=== PATIENT | female | born 1945 | race Caucasian/White ===

== ENCOUNTER 2016-06-24 09:45 | Day surgery (SDC) | payer MEDICARE, BC ==
[2016-06-24] MEDS ORDERED: Sodium Chloride 0.9% 1,000 ML IV SCH (10:15)
[2016-06-24] MEDS ORDERED: fentaNYL 100 MCG/2 ML SDV ONE (11:03)
[2016-06-24] MEDS ORDERED: Propofol 200 MG/20 ML SDV ONE (11:03)
[2016-06-24] MEDS ORDERED: Midazolam 1 MG/ML 2 ML SDV ONE (11:03)
[2016-06-24 12:38] VITALS: BP 118/68
--- NOTE | 2016-06-24 19:57 | OR ---
DATE OF PROCEDURE: 06/24/2016 PROCEDURE: Colonoscopy. FINDINGS: 1. Diverticulosis, extensively dense in the sigmoid colon with sporadic diverticulosis through the remainder of the colon. 2. Approximately 1 cm polyp, completely removed using hot snare from the sigmoid colon. COMPLICATIONS: None. STARCH AND PROSIZE MIXER: None. ANESTHESIA: MAC. PREOPERATIVE DIAGNOSIS: History of colon polyps. POSTOPERATIVE DIAGNOSIS: History of colon polyps. INDICATIONS: Risks, benefits, alternatives, limitations including, but not limited to infection, bleeding, and perforation were explained to the patient and she wished to proceed. PROCEDURE IN DETAIL: The patient was placed in the left lateral decubitus position. Digital rectal exam was performed without abnormality. The scope was advanced atraumatically to the ileocecal valve. The scope was brought back to the ascending, transverse, descending colon, and retroflexed. The aforementioned polyp was identified and completely removed as described above. Diverticulosis described as significant and noted mostly in the sigmoid colon. No other abnormalities noted on retroflexion. The patient tolerated the procedure well. Mathew Beatty MD /[id number]
== END 2016-06-24 12:55 | disposition home or self-care (01) ==
LOC: JP.SDS 09:45
PROVIDERS: ATTEND Surgery
DX: K63.5 Polyp of colon (principal); K57.30 Diverticulosis of large intestine without perforation or abscess without bleeding; K21.9 Gastro-esophageal reflux disease without esophagitis; F32.9 Major depressive disorder, single episode, unspecified; I12.9 Hypertensive chronic kidney disease with stage 1 through stage 4 chronic kidney disease, or unspecified chronic kidney disease; N18.9 Chronic kidney disease, unspecified; E11.22 Type 2 diabetes mellitus with diabetic chronic kidney disease; Z86.010 Personal history of colon polyps
CPT/HCPCS: 45385; 88305; J2250; J2704; J3010; J7040

== ENCOUNTER 2018-07-10 14:40 | Emergency (ER) | payer MEDICARE, BC ==
[2018-07-10 14:47] VITALS: BP 119/63
--- NOTE | 2018-07-10 15:05 | EDM.PDOC ---
ED HPI GENERAL MEDICAL PROBLEM - General Chief Complaint: Upper Extremity Injury/Pain Stated Complaint: VIA NORTH/ FELL Time Seen by Provider: 07/10/18 14:50 Source of Information: Reports: Patient, EMS History Limitations: Reports: No Limitations - History of Present Illness INITIAL COMMENTS - FREE TEXT/NARRATIVE: 72-year-old female stumbled out of 5 deck landing on her right side striking her left arm hard on the ground. She has pain and deformity of the upper left arm near the shoulder, and ambulance needed to be called. She was given IV pain medication in route. No loss of consciousness, denies neck pain, shortness of breath, her main concern is her left arm and shoulder. Onset: Sudden Duration: Hour(s): (Within the last hour) Location: Reports: Upper Extremity, Left Associated Symptoms: Reports: No Other Symptoms shoulder Pain Score (Numeric/FACES): 6 - Related Data Allergies Allergy/AdvReac Type Severity Reaction Status Date / Time No Known Allergies Allergy Verified 06/24/16 10:10 Home Meds: Home Meds Acetaminophen [Tylenol Extra Strength] 1,000 mg PO BID PRN 06/22/16 [History] Aspirin [Halfprin] 81 mg PO DAILY 06/22/16 [History] Atenolol [Tenormin] 50 mg PO DAILY 06/22/16 [History] Cholecalciferol (Vitamin D3) [Vitamin D3] 2,000 unit PO DAILY 06/22/16 [History] Fish Oil/[place]-3 Fatty Acids [Fish Oil] 1 each PO BID 06/22/16 [History] Flaxseed/Omega3,6,9/Fatty Acid [Flax Seed Oil 1,300 mg Softgel] 1 each PO DAILY 06/22/16 [History] Lisinopril 10 mg PO DAILY 06/22/16 [History] Multivitamin [Multivitamins] 1 each PO DAILY 06/22/16 [History] Pantoprazole Sodium [Protonix] 40 mg PO DAILY 06/22/16 [History] Potassium Chloride [Klor-Con M20] 20 meq PO DAILY 06/22/16 [History] Pravastatin Sodium [Pravachol] 20 mg PO DAILY 06/22/16 [History] Sertraline [Zoloft] 150 mg PO DAILY 06/22/16 [History] Wheat Dextrin [Benefiber] 1 each PO DAILY 06/22/16 [History] hydroCHLOROthiazide [Hydrochlorothiazide] 25 mg PO DAILY 06/22/16 [History] Past Medical History Cardiovascular History: Reports: High Cholesterol, Hypertension Respiratory History: Reports: Bronchitis, Recurrent Gastrointestinal History: Reports: Colon Polyp, GERD, Other (See Below) Other Gastrointestinal History: sl elevated liver enzymes Genitourinary History: Reports: Other (See Below) Other Genitourinary History: decreased kidney function 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: Musculoskeletal History: Reports: Arthritis Psychiatric History: Reports: Anxiety, Depression Endocrine/Metabolic History: Reports: Diabetes, Type II, Obesity/BMI 30+ Dermatologic History: Reports: Eczema - Past Surgical History Female Surgical History: Reports: Breast Biopsy Musculoskeletal Surgical History: Reports: Knee Replacement, Shoulder Surgery, Other (See Below) Social & Family History - Tobacco Use Smoking Status *Q: Never Smoker - Caffeine Use Caffeine Use: Reports: Coffee Review of Systems - Review of Systems Review Of Systems: See Below Constitutional: Denies: Fever Respiratory: Denies: Shortness of Breath Cardiovascular: Denies: Chest Pain GI/Abdominal: Reports: Nausea. Denies: Abdominal Pain, Vomiting Skin: Denies: Bruising Neurological: Denies: Paresthesia (No paresthesia of the arms) ED EXAM, GENERAL - Physical Exam Exam: See Below Exam Limited By: No Limitations General Appearance: Alert, Mild Distress Eye Exam: Bilateral Eye: Normal Inspection Head: Atraumatic Neck: Non-Tender Respiratory/Chest: Lungs Clear Extremities: Other (Extremely tender to palpation with anterior swelling and slight bruising starting over the anterior left shoulder. Very painful with any passive range of motion.) Course - Vital Signs Last Recorded V/S: Last Vital Signs Temp 97.2 F 07/10/18 14:46 Pulse 66 07/10/18 14:46 Resp 18 07/10/18 14:46 BP 119/63 07/10/18 14:46 Pulse Ox 96 07/10/18 14:46 - Orders/Labs/Meds Meds: Medications Discontinued Medications Generic Name Dose Route Start Last Admin Trade Name Freq PRN Reason Stop Dose Admin Propofol 100 mg 07/10/18 15:12 07/10/18 15:43 Diprivan 20 Ml IVPUSH 07/10/18 15:13 100 mg ONETIME ONE Administration - Re-Assessments/Exams Free Text/Narrative Re-Assessment/Exam: 07/10/18 15:05 A left shoulder x-ray was obtained. 07/10/18 17:33 Technique was difficult due to patient pain but it appeared to be an anterior dislocation. Under propofol sedation the shoulder was reduced. Post reduction films initially were equivocal and it appeared the shoulder may have re- dislocated so a second attempt at relocation was done. Further postreduction x- rays confirmed proper shoulder placement. Patient had less pain with movement. 30 minutes after reduction when the propofol wore off, the patient ate a full meal and was much more comfortable. She was placed in a left arm sling and will follow up with orthopedics later this week. Departure - Departure Time of Disposition: 17:52 Disposition: Home, Self-Care 01 Condition: Good Clinical Impression: Anterior dislocation of left shoulder Qualifiers: Encounter type: initial encounter Qualified Code(s): S43.015A - Anterior dislocation of left humerus, initial encounter - Discharge Information Instructions: Shoulder Dislocation, [id number] Referrals: PCP,None [Ordering Only Provider] - Forms: ED Department Discharge Care Plan Goals: Keep arm in sling for the majority of the time, if the arm comes out of the sling do not raise the arm above her head or recheck backwards. Call the orthopedic clinic as discussed for an appointment this week. Ibuprofen or naproxen will help with pain.
[2018-07-10] MEDS ORDERED: Propofol 200 MG/20 ML SDV IVPUSH ONE (15:12)
--- NOTE | 2018-07-10 15:38 | CRLCR ---
HISTORY: Pain after falling injury. FINDINGS: Single AP view of the left upper arm is provided. No findings for fracture or dislocation. Moderate degenerative change of the acromioclavicular joint is noted. Dictated by Matthew Rosario MD @ Jul 10 2018 3:36PM Signed by Dr. Matthew Rosario @ Jul 10 2018 3:37PM
--- NOTE | 2018-07-10 17:07 | CRLCR ---
HISTORY: Shoulder pain. History of dislocation. FINDINGS The shoulder now appears normally located. Mild degenerative change of the acromioclavicular joint is noted. No findings for fracture. Dictated by Matthew Rosario MD @ Jul 10 2018 5:03PM Signed by Dr. Matthew Rosario @ Jul 10 2018 5:05PM
--- NOTE | 2018-07-10 23:28 | CRLCR ---
INDICATION: Shoulder dislocation post reduction TECHNIQUE: Shoulder radiograph 3 views left COMPARISON: 07/10/2018 FINDINGS: Bone: No acute fractures or aggressive bone lesions are identified. There is persistent inferior dislocation of the humeral head noted without significant change. Moderate diffuse osteopenia is noted. Joint: The glenohumeral is unremarkable. The acromioclavicular joint is unremarkable. Soft tissue: Unremarkable. The visualized hemithorax is unremarkable in appearance. No radiopaque foreign bodies are seen. IMPRESSION: 1. There is persistent inferior dislocation of the humeral head noted without significant change. Follow-up evaluation with [facility] view recommended. A copy of this report was faxed to Dr. Toscano at approximately 11:26 PM. Dictated by Bobby Willingham MD @ 07/10/2018 11:26:49 PM Dictated by: Bobby Willingham MD @ 07/10/2018 23:26:57 (Electronically Signed)
== END 2018-07-10 17:52 | disposition home or self-care (01) ==
LOC: JP.ED 14:40
DX: S43.015A Anterior dislocation of left humerus, initial encounter (principal); I10 Essential (primary) hypertension; E11.9 Type 2 diabetes mellitus without complications; E66.9 Obesity, unspecified; F41.9 Anxiety disorder, unspecified; F32.9 Major depressive disorder, single episode, unspecified; M19.90 Unspecified osteoarthritis, unspecified site; Z79.82 Long term (current) use of aspirin; Z79.899 Other long term (current) drug therapy; W01.198A Fall on same level from slipping, tripping and stumbling with subsequent striking against other object, initial encounter; Y92.009 Unspecified place in unspecified non-institutional (private) residence as the place of occurrence of the external cause
CPT/HCPCS: 23650; 23655; 73020; 73030; 99283; J2704

== ENCOUNTER 2018-10-11 13:25 | Emergency (ER) | payer MEDICARE, BC ==
[2018-10-11 13:31] VITALS: BP 116/67
[2018-10-11] MEDS: Acetaminophen/HYDROcodone 325-5 MG Tab PO ONE (14:27)
--- NOTE | 2018-10-11 14:28 | EDM.PDOC ---
ED HPI GENERAL MEDICAL PROBLEM - General Chief Complaint: Head Injury Stated Complaint: FALL VIA NORTH Time Seen by Provider: 10/11/18 14:10 Source of Information: Reports: Patient, Old Records History Limitations: Reports: No Limitations - History of Present Illness INITIAL COMMENTS - FREE TEXT/NARRATIVE: 72 yo female here via EMS after she tripped on the sidewalk and hit her R forehead and injured her R hip. She denies LOC, nausea or blurred vision. No new neck pain. Has not walked since her fall. She is on only ASA for blood thinners. Onset: Today Onset Date: 10/11/18 Onset Time: 13:40 Duration: Minutes:, Constant Location: Reports: Face, Lower Extremity, Right Quality: Reports: Ache Severity: Moderate Improves with: Reports: Rest Worsens with: Reports: Movement (of R leg worsens hip pain) Context: Reports: Trauma Associated Symptoms: Reports: No Other Symptoms. 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) Right Head Pain Score (Numeric/FACES): 3 - Related Data Allergies Allergy/AdvReac Type Severity Reaction Status Date / Time No Known Allergies Allergy Verified 10/11/18 13:30 Home Meds: Home Meds Acetaminophen [Tylenol Extra Strength] 1,000 mg PO BID PRN 06/22/16 [History] Aspirin [Halfprin] 81 mg PO DAILY 06/22/16 [History] Atenolol [Tenormin] 50 mg PO DAILY 06/22/16 [History] Fish Oil/[place]-3 Fatty Acids [Fish Oil] 1 each PO BID 06/22/16 [History] Flaxseed/Omega3,6,9/Fatty Acid [Flax Seed Oil 1,300 mg Softgel] 1 each PO DAILY 06/22/16 [History] Lisinopril 10 mg PO DAILY 06/22/16 [History] Multivitamin [Multivitamins] 1 each PO DAILY 06/22/16 [History] Pantoprazole Sodium [Protonix] 40 mg PO DAILY 06/22/16 [History] Potassium Chloride [Klor-Con M20] 20 meq PO DAILY 06/22/16 [History] Pravastatin Sodium [Pravachol] 20 mg PO DAILY 06/22/16 [History] Sertraline [Zoloft] 150 mg PO DAILY 06/22/16 [History] Wheat Dextrin [Benefiber] 1 each PO DAILY 06/22/16 [History] hydroCHLOROthiazide [Hydrochlorothiazide] 25 mg PO DAILY 06/22/16 [History] Past Medical History HEENT History: Reports: Impaired Vision Cardiovascular History: Reports: High Cholesterol, Hypertension Respiratory History: Reports: Bronchitis, Recurrent Gastrointestinal History: Reports: Colon Polyp, GERD, Other (See Below) Other Gastrointestinal History: sl elevated liver enzymes Genitourinary History: Reports: Other (See Below) Other Genitourinary History: decreased kidney function 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: Musculoskeletal History: Reports: Arthritis, Other (See Below) Other Musculoskeletal History: L shoulder dislocation 07/10/18 Neurological History: Reports: None Psychiatric History: Reports: Anxiety, Depression Endocrine/Metabolic History: Reports: Diabetes, Type II, Obesity/BMI 30+ Hematologic History: Reports: None Immunologic History: Reports: None Oncologic (Cancer) History: Reports: None Dermatologic History: Reports: Eczema - Past Surgical History Head Surgeries/Procedures: Reports: None HEENT Surgical History: Reports: None Cardiovascular Surgical History: Reports: None Respiratory Surgical History: Reports: None GI Surgical History: Reports: Colonoscopy Female Surgical History: Reports: Breast Biopsy Neurological Surgical History: Reports: None Musculoskeletal Surgical History: Reports: Knee Replacement, Shoulder Surgery, Other (See Below) Dermatological Surgical History: Reports: None Social & Family History - Tobacco Use Smoking Status *Q: Never Smoker Second Hand Smoke Exposure: No - Caffeine Use Caffeine Use: Reports: Coffee, Tea - Recreational Drug Use Recreational Drug Use: No ED ROS GENERAL - Review of Systems Review Of Systems: See Below Constitutional: Reports: No Symptoms HEENT: Reports: No Symptoms Respiratory: Reports: No Symptoms Cardiovascular: Reports: No Symptoms GI/Abdominal: Reports: No Symptoms. Denies: Nausea : Reports: No Symptoms Musculoskeletal: Reports: Joint Pain (R lateral hip) Skin: Reports: Bruising (R forehead with hematoma) Neurological: Reports: No Symptoms. Denies: Dizziness, Headache ED EXAM, HEAD INJURY - Physical Exam Exam: See Below Exam Limited By: No Limitations General Appearance: Alert, WD/WN, No Apparent Distress Head: Facial Ecchymosis (R forehead), Facial Swelling (R forehead). No: Active Bleeding, Facial Lacerations Nexus Criteria: No: Posterior, Midline Cervical Tenderness, Altered Level of Consciousness, Focal Neurological Deficit Eyes: Bilateral Eye: PERRL Ears: Normal External Exam, Normal Canal, Hearing Grossly Normal, Normal TMs Nose: Normal Inspection, No Blood Throat/Mouth: Normal Inspection, Normal Lips, Normal Oropharynx, Normal Voice, No Airway Compromise Neck: Non-Tender, Full Range of Motion, Normal Inspection Respiratory: No Respiratory Distress, Lungs Clear, Normal Breath Sounds, No Accessory Muscle Use Cardiovascular: Regular Rate, Rhythm Extremities: Normal Inspection, No Pedal Edema, Limited Range of Motion (of R hip due to pain). No: Normal Range of Motion, Non-Tender, Pedal Edema, Increased Warmth Neurologic: pin inserter regulator II-XII nml As Tested, No Motor/Sensory Deficits, Alert, Normal Mood/Affect, Oriented x 3 Skin: Ecchymosis (Large of R forehead, small of R hip) Course - Vital Signs Last Recorded V/S: Last Vital Signs Temp 35.0 C L 10/11/18 13:42 Pulse 81 10/11/18 13:42 Resp 20 10/11/18 13:42 BP 116/67 10/11/18 13:42 Pulse Ox 97 10/11/18 13:42 - Orders/Labs/Meds Orders: Active Orders 24 hr Category Date Time Status Hip Min 2V or 3V Rt [CR] Stat Exams 10/11/18 14:22 Taken Meds: Medications Discontinued Medications Generic Name Dose Route Start Last Admin Trade Name Freq PRN Reason Stop Dose Admin Hydrocodone Bitart/Acetaminophen 1 tab 10/11/18 14:22 10/11/18 14:27 [place] 325-5 Mg PO 10/11/18 14:23 1 tab ONETIME ONE Administration - Radiology Interpretation Free Text/Narrative:: R hip X-ray-neg Departure - Departure Time of Disposition: 15:20 Disposition: Home, Self-Care 01 Condition: Fair Clinical Impression: Contusion of hip, right Qualifiers: Encounter type: initial encounter Qualified Code(s): S70.01XA - Contusion of right hip, initial encounter Forehead contusion Qualifiers: Encounter type: initial encounter Qualified Code(s): S00.83XA - Contusion of other part of head, initial encounter - Discharge Information *PRESCRIPTION DRUG MONITORING PROGRAM REVIEWED*: No *COPY OF PRESCRIPTION DRUG MONITORING REPORT IN PATIENT YUKO: No Referrals: PCP,None [Primary Care Provider] - Forms: ED Department Discharge Additional Instructions: Take acetaminophen and/or ibuprofen as needed for pain relief. F/U in the clinic as needed. - My Orders Last 24 Hours: My Active Orders 10/11/18 14:22 Hip Min 2V or 3V Rt [CR] Stat - Assessment/Plan Last 24 Hours: My Active Orders 10/11/18 14:22 Hip Min 2V or 3V Rt [CR] Stat
--- NOTE | 2018-10-11 15:17 | CRLCR ---
Indication: Fall Technique: Two views of the right hip Comparison: None available Findings: Bones: No acute displaced fracture or dislocation. Joint spaces: Preserved right hip joint space. Small femoral head osteophyte formation. Degenerative changes in the lower lumbar spine. Soft tissues: A 5.0 x 4.4 cm heterogeneous ovoid calcific density in the pelvis, which could represent a calcified myoma or a large bladder calculus, however other etiologies are not excluded. Impression: No acute displaced fracture seen. A 5 cm pelvic calcification, of unclear etiology. Recommend follow-up evaluation Dictated by Martín Hankins MD @ 10/11/2018 3:17:02 PM Dictated by: Martín Hankins MD @ 10/11/2018 15:17:11 (Electronically Signed)
== END 2018-10-11 15:38 | disposition home or self-care (01) ==
LOC: JP.ED 13:25
DX: S70.01XA Contusion of right hip, initial encounter (principal); S00.83XA Contusion of other part of head, initial encounter; I10 Essential (primary) hypertension; E78.00 Pure hypercholesterolemia, unspecified; F41.9 Anxiety disorder, unspecified; F32.9 Major depressive disorder, single episode, unspecified; E11.9 Type 2 diabetes mellitus without complications; Z79.899 Other long term (current) drug therapy; Z79.82 Long term (current) use of aspirin; W01.198A Fall on same level from slipping, tripping and stumbling with subsequent striking against other object, initial encounter; Y92.512 Supermarket, store or market as the place of occurrence of the external cause
CPT/HCPCS: 73502; 99283; A9270

== ENCOUNTER 2018-12-21 14:09 | Emergency (ER) | payer MEDICARE, BC ==
--- NOTE | 2018-12-21 14:46 | EDM.PDOC ---
ED HPI GENERAL MEDICAL PROBLEM - General Chief Complaint: General Stated Complaint: MED[facility] Time Seen by Provider: 12/21/18 14:36 Source of Information: Reports: Patient, EMS, RN Notes Reviewed History Limitations: Reports: No Limitations - History of Present Illness INITIAL COMMENTS - FREE TEXT/NARRATIVE: 73-year-old female presents emergency department today following a fall at home. She does not recall details of the event possibly may have been syncopal she landed predominantly on the left side of her face. Has no other functional complaints denies any other injuries there was no loss of consciousness does complain of pain in the facial bones and a slight headache Cheek Pain Score (Numeric/FACES): 4 - Related Data Allergies Allergy/AdvReac Type Severity Reaction Status Date / Time No Known Allergies Allergy Verified 12/21/18 14:14 Home Meds: Home Meds Acetaminophen [Tylenol Extra Strength] 1,000 mg PO BID PRN 06/22/16 [History] Aspirin [Halfprin] 81 mg PO DAILY 06/22/16 [History] Fish Oil/Price-3 Fatty Acids [Fish Oil] 1 each PO BID 06/22/16 [History] Flaxseed/Omega3,6,9/Fatty Acid [Flax Seed Oil 1,300 mg Softgel] 1 each PO DAILY 06/22/16 [History] Lisinopril 10 mg PO DAILY 06/22/16 [History] Multivitamin [Multivitamins] 1 each PO DAILY 06/22/16 [History] Pantoprazole Sodium [Protonix] 40 mg PO DAILY 06/22/16 [History] Pravastatin Sodium [Pravachol] 20 mg PO DAILY 06/22/16 [History] Sertraline [Zoloft] 150 mg PO DAILY 06/22/16 [History] Wheat Dextrin [Benefiber] 1 each PO DAILY 06/22/16 [History] L.acidoph,Paracasei, B.lactis [Probiotic] 1 tab PO DAILY 12/21/18 [History] Metoprolol Succinate [Toprol XL] 50 mg PO DAILY 12/21/18 [History] Past Medical History HEENT History: Reports: Impaired Vision Cardiovascular History: Reports: High Cholesterol, Hypertension Respiratory History: Reports: Bronchitis, Recurrent Gastrointestinal History: Reports: Colon Polyp, GERD, Other (See Below) Other Gastrointestinal History: sl elevated liver enzymes Genitourinary History: Reports: Other (See Below) Other Genitourinary History: decreased kidney function 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: Musculoskeletal History: Reports: Arthritis, Other (See Below) Other Musculoskeletal History: L shoulder dislocation 07/10/18 Psychiatric History: Reports: Anxiety, Depression Endocrine/Metabolic History: Reports: Diabetes, Type II, Obesity/BMI 30+ Hematologic History: Reports: None Immunologic History: Reports: None Oncologic (Cancer) History: Reports: None Dermatologic History: Reports: Eczema - Past Surgical History Head Surgeries/Procedures: Reports: None HEENT Surgical History: Reports: None Cardiovascular Surgical History: Reports: None Respiratory Surgical History: Reports: None GI Surgical History: Reports: None Female Surgical History: Reports: Breast Biopsy Endocrine Surgical History: Reports: None Musculoskeletal Surgical History: Reports: Knee Replacement, Shoulder Surgery, Other (See Below) Dermatological Surgical History: Reports: None Social & Family History - Family History Family Medical History: Noncontributory - Tobacco Use Smoking Status *Q: Never Smoker Second Hand Smoke Exposure: No - Caffeine Use Caffeine Use: Reports: Coffee, Soda, Tea - Recreational Drug Use Recreational Drug Use: No ED ROS GENERAL - Review of Systems Review Of Systems: See Below Constitutional: Reports: No Symptoms HEENT: Reports: Other (Facial pain) Respiratory: Reports: No Symptoms Cardiovascular: Reports: Syncope (Possibly) GI/Abdominal: Reports: No Symptoms : Reports: No Symptoms Musculoskeletal: Reports: No Symptoms Skin: Reports: Bruising Neurological: Reports: No Symptoms ED EXAM, GENERAL - Physical Exam Exam: See Below Free Text/Narrative:: Primary survey GCS 15 airway is open patent and clear, cardiovascular demonstrates regular rate and rhythm S1 and S2 lungs are clear to auscultation bilaterally Secondary survey General: Female, not in any distress, GCS 15, alert and oriented x3 HEENT: head is bruising and ecchymosis appreciated on the lateral aspect of the left side of the face encompassing orbit and maxillary sinus region superficial wound is appreciated just the left eye normocephalic, eyes pupils equal round reactive to light, sclera clear no conjunctivitis appreciated, extraocular eye movements intact. Ears tympanic membranes clear and yi landmarks and light reflex are present bilaterally canals are clear. Nose no septal deviation, nares are clear , no blood present. Mouth mucosa is moist and pink no erythema or exudate noted in soft palate, tongue is midline uvula is midline, dentition is intact. Neck: Supple no thyromegaly no tracheal deviation. NO posterior midline C-spine tenderness NO evidence of intoxication GCS > 14 No focal neurological deficit NO distracting injury Nodes: Cervical nodes subclavicular nodes nontender no palpable lymphadenopathy noted. Lungs: clear to auscultation bilaterally with symmetrical respirations, no adventitious noise appreciated. CV: Regular rate and rhythm S1 and S2 appreciated no murmurs rubs or gallops noted. Abdomen: Soft, nontender, no palpable masses or organomegaly appreciated, no distention no guarding bowel sounds are present, . Neuro: Cranial nerves II test with pupillary light reflex 4 mm to 2 mm bilaterally, CN III test pupillary constriction, lid elevation and eye abduction bilaterally, CN IV downward movement of eyes bilaterally, CN V good jaw movement, CN lateral deviation of the eyes bilaterally to finger movement , CN VII symmetrical smile shows teeth without difficulty, CN VIII pass finger rub to ears bilaterally, CN IX adequate voice and tone, CN X adequate voice and tone no difficulty swallowing, CN XI can shrug shoulders without difficulty, CN XII can stick tongue out without difficulty, cranial nerves II to XII intact as tested, Skin: Warm and dry, intact, bruising and superficial wound described above Extremities: No lower extremity edema appreciated, no tenderness shoulders elbows wrists bilaterally pelvic rock's is negative no tenderness to knees or ankles bilaterally Course - Vital Signs Last Recorded V/S: Last Vital Signs Temp 96.6 F 12/21/18 14:27 Pulse 65 12/21/18 16:21 Resp 20 12/21/18 16:21 BP 156/82 H 12/21/18 16:21 Pulse Ox 92 L 12/21/18 16:21 - Orders/Labs/Meds Orders: Active Orders 24 hr Category Date Time Status EKG Documentation Completion [RC] ASDIRECTED Care 12/21/18 14:41 Active EKG 12 Lead [EK] Routine Ther 12/21/18 14:41 Ordered Labs: Laboratory Tests 12/21/18 Range/Units 15:30 Ethyl Alcohol < 3 mg/dL - Re-Assessments/Exams Free Text/Narrative Re-Assessment/Exam: 12/21/18 15:57 Developed neck pain while in the emergency department, on exam she is tender to palpation both spinally and paraspinally CT scan pending Departure - Departure Time of Disposition: 16:58 Disposition: Home, Self-Care 01 Condition: Fair Clinical Impression: Facial contusion Qualifiers: Encounter type: initial encounter Qualified Code(s): S00.83XA - Contusion of other part of head, initial encounter - Discharge Information Referrals: PCP,None [Primary Care Provider] - Forms: ED Department Discharge Additional Instructions: Use Tylenol or Motrin as needed for pain control please follow-up with your primary care for further evaluation of the thyroid nodule, call return to the emergency department worsening of symptoms - My Orders Last 24 Hours: My Active Orders 12/21/18 14:41 EKG Documentation Completion [RC] ASDIRECTED EKG 12 Lead [EK] Routine - Assessment/Plan Last 24 Hours: My Active Orders 12/21/18 14:41 EKG Documentation Completion [RC] ASDIRECTED EKG 12 Lead [EK] Routine Plan: Assessment Acuity = acute Site and laterality = facial contusion Etiology = secondary to fall Manifestations = none Location of injury = Home Lab values = CT scan head, neck and facial bones show no acute process she does have significant arthritis in the neck as well as bulging disks in the lower cervical spine and a fairly large thyroid nodule calcified , EKG demonstrates a normal sinus rhythm Plan I did review lab work with her as well as provided her copies of her CT scan results with vascular follow-up with her primary care to review the thyroid nodule she does use a walker at home to help prevent the falls however she admits she has not been using it like she should. This note was dictated using uiu voice recognition software please call with any questions on syntax or grammar.
--- NOTE | 2018-12-21 15:29 | CRLCT ---
INDICATION: Full TECHNIQUE: Head CT without contrast. COMPARISON: None FINDINGS: CSF spaces: Within normal limits for age. Brain parenchyma: There are nonspecific low attenuation white matter changes consistent with chronic microvascular disease. No sign of mass, hemorrhage, or midline shift. Skull base and calvarium: The visualized paranasal sinuses and mastoid air cells demonstrate no acute or significant findings. The visualized orbits are grossly unremarkable. No skull fractures. There is intracranial atherosclerosis. IMPRESSION: 1. No acute findings. 2. Nonspecific white matter disease, typical of chronic microvascular disease. Please note that all CT scans at this facility use dose modulation, iterative reconstruction, and/or weight-based dosing when appropriate to reduce radiation dose to as low as reasonably achievable. Dictated by Mariza Steele MD @ Dec 21 2018 3:27PM Signed by Dr. Mariza Steele @ Dec 21 2018 3:27PM
--- NOTE | 2018-12-21 15:33 | CRLCT ---
INDICATION: Fall TECHNIQUE: CT maxillofacial without contrast. COMPARISON: None FINDINGS: Facial bones: No fractures or bone lesions. Specifically the nasal bones, temporomandibular joints, maxilla and mandible appear intact. Orbits and globes: Unremarkable. Sinuses: No acute or significant findings. Soft tissues: Unremarkable. IMPRESSION: No sign of acute injury. Please note that all CT scans at this facility use dose modulation, iterative reconstruction, and/or weight-based dosing when appropriate to reduce radiation dose to as low as reasonably achievable. Dictated by Mariza Steele MD @ Dec 21 2018 3:32PM Signed by Dr. Mariza Steele @ Dec 21 2018 3:32PM
--- NOTE | 2018-12-21 15:51 | CRLCR ---
Indication: Fall with pain Technique: Three views left shoulder Comparison: None Findings: Bones: Alignment is normal. No fractures or bone lesions. Joint spaces: Mild degenerative changes in the acromioclavicular joint. Soft tissues: Soft tissue contusion lateral to the humeral head. Impression: No fracture or subluxation. Soft tissue contusion lateral to the humeral head. Dictated by Mariza Steele MD @ Dec 21 2018 3:47PM Signed by Dr. Mariza Steele @ Dec 21 2018 3:49PM
[2018-12-21 16:22] VITALS: BP 156/82; PULSE 65
--- NOTE | 2018-12-21 16:50 | CRLCT ---
INDICATION: Pain after trauma COMPARISON: None available TECHNIQUE: CT examination of the cervical spine is performed without contrast using spiral technique. 2 mm thick axial, sagittal and coronal reconstructions were made. Please note that all CT scans at this facility use dose modulation, iterative reconstruction, and/or weight-based dosing when appropriate to reduce radiation dose to as low as reasonably achievable. FINDINGS: : There is grade 1 anterior subluxation of C7 on T1 which is probably degenerative, associated with mild bilateral facet arthropathy. The C7-T1 disc space is normal height. The rest of the cervical vertebral bodies are in anatomic alignment. There is prominent disc degenerative disease at C4-5, C5-6, and C6-7. There is mild diffuse disc bulging and posterior osteophytic ridging at these levels which may impinge upon the anterior cervical cord. There is moderate bilateral C4-5 and C5-6 foraminal stenosis from uncovertebral joint hypertrophy. There is mild bilateral C6-7 foraminal stenosis from uncovertebral joint hypertrophy. There is moderate C3-4 disc degenerative disease with mild diffuse disc bulging. There is mild bilateral foraminal stenosis from uncovertebral joint hypertrophy. There is no sign of prevertebral soft tissue swelling. The airway structures are normal in appearance. The visualized skull base is normal in appearance. Brain detail is extremely limited by the use of bone technique, but no gross abnormality is seen. The apices of the lungs are clear. There is a 2.7 x 2.4 centimeter peripherally calcified nodule in the left lobe of the thyroid. This can be evaluated with ultrasound on a nonemergent basis if clinically indicated. IMPRESSION: No sign of acute injury to the cervical spine. Grade 1 anterior subluxation of C7 on T1 which is probably degenerative. Prominent disc degenerative disease from C4-5 through C6-7 and moderate disc degenerative disease at C3-4. 2.7 x 2.4 centimeter peripherally calcified left thyroid nodule. Please note that all CT scans at this facility use dose modulation, iterative reconstruction, and/or weight-based dosing when appropriate to reduce radiation dose to as low as reasonably achievable. Dictated by Mateo Suarez MD @ Dec 21 2018 4:43PM Signed by Dr. Mateo Suarez @ Dec 21 2018 4:48PM
== END 2018-12-21 17:17 | disposition home or self-care (01) ==
LOC: JP.ED 14:09
DX: S00.83XA Contusion of other part of head, initial encounter (principal); I10 Essential (primary) hypertension; E78.5 Hyperlipidemia, unspecified; E11.9 Type 2 diabetes mellitus without complications; K21.9 Gastro-esophageal reflux disease without esophagitis; Z79.899 Other long term (current) drug therapy; Z79.82 Long term (current) use of aspirin; W19.XXXA Unspecified fall, initial encounter; Y92.009 Unspecified place in unspecified non-institutional (private) residence as the place of occurrence of the external cause
CPT/HCPCS: 36415; 70450; 70486; 72125; 73030; 93005; 99285; G0480

== ENCOUNTER 2019-03-16 08:29 | Inpatient (IN) | payer MEDICARE, BC ==
[2019-03-16] MEDS ORDERED: ceFAZolin 2 GM in Premix Bag 1 BAG IV ONE (09:30)
[2019-03-16] MEDS ORDERED: Acetaminophen 500 MG Tab PO ONE (09:30)
[2019-03-16] MEDS ORDERED: Metoprolol Succinate 50 MG Tab.ER PO ONE (09:30)
[2019-03-16] MEDS: Dextrose 5%-Lactated Ringers 1,000 ML IV SCH ×2 (09:45→13:55)
[2019-03-16] MEDS ORDERED: Glycopyrrolate 0.2 MG/ML 5 ML MDV ONE (09:58)
[2019-03-16] MEDS ORDERED: fentaNYL 250 MCG/5 ML SDV ONE (09:58)
[2019-03-16] MEDS ORDERED: Rocuronium 50 MG/5 ML Vial ONE (09:58)
[2019-03-16] MEDS ORDERED: Neostigmine Methylsulfate 1 MG/ML 5 ML Syringe ONE (09:58)
[2019-03-16] MEDS ORDERED: Propofol 200 MG/20 ML SDV ONE (09:58)
[2019-03-16] MEDS ORDERED: Ondansetron 4 MG/2 ML SDV ONE (09:58)
[2019-03-16] MEDS ORDERED: Dexamethasone 4 MG/ML SDV ONE ×2 (09:58→11:31)
[2019-03-16] MEDS ORDERED: Succinylcholine 200 MG/10 ML MDV ONE (10:02)
[2019-03-16] MEDS ORDERED: HYDROmorphone 0.5 MG/0.5 ML Syringe IVPUSH PRN (14:02)
[2019-03-16] MEDS ORDERED: HYDROmorphone 1 MG/ML Syringe IV PRN (14:02)
[2019-03-16] MEDS ORDERED: Ondansetron 4 MG/2 ML SDV IVPUSH PRN (14:02)
[2019-03-16] MEDS: Pantoprazole 40 MG Tab.CR PO SCH (16:30)
[2019-03-16] MEDS: Acetaminophen 325 MG Tab PO SCH ×2 (16:30→21:20)
[2019-03-16] MEDS: ceFAZolin 2 GM in Premix Bag 1 BAG IV SCH (16:30)
[2019-03-17] MEDS: ceFAZolin 2 GM in Premix Bag 1 BAG IV SCH ×2 (01:00→08:35)
[2019-03-17] MEDS: Dextrose 5%-Lactated Ringers 1,000 ML IV SCH (03:34)
[2019-03-17] MEDS: Acetaminophen 325 MG Tab PO SCH ×4 (05:00→21:29)
[2019-03-17] MEDS: Pantoprazole 40 MG Tab.CR PO SCH ×2 (07:49→15:39)
[2019-03-17] MEDS: Lisinopril 10 MG Tab PO SCH (08:42)
[2019-03-17] MEDS: Aspirin 81 MG Tab.EC PO SCH (08:42)
[2019-03-17] MEDS: Metoprolol Succinate 50 MG Tab.ER PO SCH (08:42)
[2019-03-17] MEDS: Sertraline 50 MG Tab PO SCH (08:43)
[2019-03-17] MEDS ORDERED: Dextrose 5%-Lactated Ringers 1,000 ML IV SCH (08:45)
[2019-03-17] MEDS ORDERED: Benzocaine/Cetylpyridinium/Menthol Lozenge MUCMEM PRN (19:57)
[2019-03-18] MEDS: Acetaminophen 325 MG Tab PO SCH ×2 (03:16→09:50)
[2019-03-18] MEDS: Pantoprazole 40 MG Tab.CR PO SCH (07:16)
[2019-03-18 07:26] VITALS: BP 150/90; PULSE 64
[2019-03-18] MEDS: Lisinopril 10 MG Tab PO SCH (09:49)
[2019-03-18] MEDS: Aspirin 81 MG Tab.EC PO SCH (09:49)
[2019-03-18] MEDS: Metoprolol Succinate 50 MG Tab.ER PO SCH (09:49)
[2019-03-18] MEDS: Sertraline 50 MG Tab PO SCH (09:54)
[2019-03-18] MEDS ORDERED: Sulfamethoxazole/Trimethoprim 800-160 MG Tab PO ONE (11:00)
--- NOTE | 2019-03-18 13:35 | PN ---
DATE OF SERVICE: 03/17/2019 The patient is 1 day status post total thyroidectomy. The pathology appears to probably be benign, but is still pending. She has had no problems overnight in terms of pain, only requiring Tylenol. The patient's calcium has dropped down to 8.6. We will need to watch that at least for the next 24 hours to make sure she does not become symptomatic with low calcium, and otherwise, we will begin a regular diet today. Man Baron MD /[id number]
--- NOTE | 2019-03-19 06:25 | DISCH ---
FINAL DIAGNOSIS: Thyroid nodules x2 showing atypical cells on fine-needle aspiration. SECONDARY DIAGNOSES: 1. History of gastroesophageal reflux disease. 2. History of hypertension. 3. History of obesity. 4. History of type 2 diabetes mellitus. 5. History of depression. 6. Hyperlipidemia. 7. Chronic renal insufficiency, stage III. OPERATIVE PROCEDURES: Done on 03/16/2019, total thyroidectomy including removal of partially substernal left thyroid lobe. SUMMARY: This 73-year-old female presenting with some enlargement of the left thyroid lobe. On ultrasound, she was noted to have thyroid nodule on the left side as well as within the isthmus of the thyroid, both of which met criteria for fine-needle aspiration. Fine-needle aspiration of these both showed some atypical cells. The patient underwent a total thyroidectomy on the day of admission and final pathology is pending. Intraoperative frozen section was suggestive of follicular lesions, but the final pathology is pending. Postoperatively, the patient has done well. She had some drop in her calcium to 8.3, but was not symptomatic with that, and her creatinine has otherwise been stable at 1.3 on postop day #1 and #2. She will be discharged home. Taking only Tylenol as needed for pain. She was instructed if she develops any perioral paresthesias which will be the first symptom of hypocalcemia that she should take 3 Tums p.r.n. Otherwise, she will be following up with Dr. Baron at [facility] on 03/28/2019 with a BMP, phosphate, and magnesium to be drawn at that appointment.
--- NOTE | 2019-03-26 10:46 | OR ---
DATE OF PROCEDURE: 03/16/2019 SURGEON: Man Baron MD PREOPERATIVE DIAGNOSIS: Thyroid nodules in the left lobe and isthmus showing atypical cells on fine-needle aspiration. POSTOPERATIVE DIAGNOSES: 1. Thyroid nodules in the isthmus and left lobe of the thyroid with atypical cells on fine- needle aspiration (follicular lesions on frozen section). 2. Left thyroid lobe, partially retrosternal in location. OPERATIVE PROCEDURE: Thyroid exploration with total thyroidectomy including removal of the retrosternal portion of the left thyroid lobe (92162). ANESTHESIA: General. SEO PROFESSIONAL: Mili Bess PA-C. INDICATIONS FOR PROCEDURE: This is a 73-year-old female originally presenting with some enlargement of the left thyroid lobe on ultrasound. This included a nodule in the left thyroid lobe, as well as a separate nodule in the isthmus of the thyroid, which were radiologically suspicious. Both areas were evaluated by means of fine-needle aspiration, and both showed atypical cells. Plan at this point will be to proceed with a total thyroidectomy. The potential risks of the procedure including bleeding, infection, injury to the recurrent laryngeal nerves and/or parathyroid glands, as well as the possibility of needing additional treatment if malignancy is identified were all reviewed, and the patient wishes to proceed. DETAILS OF PROCEDURE: The patient was taken to the operating room. After general endotracheal anesthesia was induced, the upper chest and neck areas were prepped and draped. A standard collar incision was made and carried down through the skin and subcutaneous tissue and through the platysmal layers. Subplatysmal flaps were then raised superiorly and inferiorly and midline division of the attachments on the strap muscles was undertaken. Initially, the dissection continued around to the left side of the thyroid with dissection of the strap muscles off of those structures. At this point, both the isthmus and the left thyroid lobes were identified. The left thyroid lobe had significant substernal component. This was dissected up bluntly with primarily dissection. Once this was brought up from underneath the sternum, the inferior thyroid vein was divided with Harmonic scalpel and the middle thyroid vein was likewise divided. The upper pole vessels were then taken with Harmonic scalpel and the left lobe was then mobilized medially. The branches of the inferior thyroid artery were then divided flush with the thyroid capsule and this allowed reflection of the parathyroid glands lateral and maintaining the blood supply. The dissection was then continued medially, and at that point, the thyroid divided at the junction of the isthmus and right thyroid lobe with Harmonic scalpel. The remaining attachments of the isthmus and left thyroid lobe were then dissected free and the specimen delivered from the field. Frozen section was consistent with a follicular lesion. The examination of the surrounding areas showed no areas of lymphadenopathy. The remaining right lobe of the thyroid was then excised with similar steps as identified of the left thyroid lobe and that specimen separately delivered from the field. At that point, no further problems were noted. The area was irrigated with saline solution. No bleeding or other problems were identified. The strap muscles were then reapproximated with some 3-0 Vicryl stitch, the platysma layer with 4-0 Vicryl stitch, and the skin with 5-0 Vicryl subcuticular stitch. Steri-Strips were applied. The patient was taken to the recovery room in satisfactory condition. Physician social media assistant, Mili Bess, played an essential role in assisting in this case, helping to position the patient, retract structures as needed, as well as suturing and cutting sutures when indicated. Her presence improved patient safety and decreased the operative time. Man Baron MD /[id number]
== END 2019-03-18 11:20 | disposition home or self-care (01) | DRG 627 ==
LOC: JP.SDS 08:29 → JP.MS 13:00 → JP.SDS 03-17 07:57 → JP.MS 03-17 07:58
PROVIDERS: ADMIT Surgery; ATTEND Surgery
PROC: 0GTK0ZZ Resection of Thyroid Gland, Open Approach (ICD-10-PCS; principal; 2019-03-16)
DX: E04.2 Nontoxic multinodular goiter (principal); K21.9 Gastro-esophageal reflux disease without esophagitis; E66.9 Obesity, unspecified; F32.9 Major depressive disorder, single episode, unspecified; E78.5 Hyperlipidemia, unspecified; N18.3 Chronic kidney disease, stage 3 (moderate); I12.9 Hypertensive chronic kidney disease with stage 1 through stage 4 chronic kidney disease, or unspecified chronic kidney disease; E87.6 Hypokalemia; E79.0 Hyperuricemia without signs of inflammatory arthritis and tophaceous disease; Z79.82 Long term (current) use of aspirin; Z79.899 Other long term (current) drug therapy; Z68.31 Body mass index [BMI] 31.0-31.9, adult; E11.22 Type 2 diabetes mellitus with diabetic chronic kidney disease
CPT/HCPCS: 36415; 80048; 83735; 84100; 88307; 88331; 94762; A9270-GY; J0330; J0690; J1100; J1170; J2405; J2704; J2710; J3010; J3490; J7121

== ENCOUNTER 2021-11-13 09:38 | Emergency (ER) | payer MEDICARE, BC ==
[2021-11-13 09:47] VITALS: BP 155/88; PULSE 75
== END 2021-11-13 10:08 | disposition home or self-care (01) ==
LOC: JP.ED 09:38
DX: S00.83XA Contusion of other part of head, initial encounter (principal); E78.00 Pure hypercholesterolemia, unspecified; I10 Essential (primary) hypertension; E11.9 Type 2 diabetes mellitus without complications; E66.9 Obesity, unspecified; Z68.34 Body mass index [BMI] 34.0-34.9, adult; Z79.01 Long term (current) use of anticoagulants; Z79.899 Other long term (current) drug therapy; Z79.82 Long term (current) use of aspirin; W18.39XA Other fall on same level, initial encounter
CPT/HCPCS: 99283; 99285

== ENCOUNTER 2022-01-05 04:56 | Emergency (ER) | payer MEDICARE, BC ==
[2022-01-05] MEDS ORDERED: Aspirin 81 MG Tab.Chew PO ONE (05:13)
[2022-01-05 05:45] LABS: TROPONIN I HIGH SENSITIVITY 4.1 pg/mL (<=60.3)
[2022-01-05 05:46] VITALS: BP 175/81; PULSE 69
== END 2022-01-05 07:40 | disposition home or self-care (01) ==
LOC: JP.ED 04:56
DX: R07.89 Other chest pain (principal); E78.00 Pure hypercholesterolemia, unspecified; I10 Essential (primary) hypertension; K21.9 Gastro-esophageal reflux disease without esophagitis; M19.90 Unspecified osteoarthritis, unspecified site; E11.9 Type 2 diabetes mellitus without complications; I48.91 Unspecified atrial fibrillation; E66.9 Obesity, unspecified; Z68.26 Body mass index [BMI] 26.0-26.9, adult; Z79.899 Other long term (current) drug therapy; Z79.01 Long term (current) use of anticoagulants
CPT/HCPCS: 36415; 71045; 80048; 84484; 85025; 85610; 93005; 99285; A9270

== ENCOUNTER 2024-11-05 19:42 | Emergency (ER) | payer MEDICARE, BC ==
[2024-11-05 20:22] LABS: BASOPHILS ABSOLUTE AUTO 0.05 K/uL (0.00-0.10); BASOPHILS PERCENT AUTO 1.0 % (0.1-1.3); EOSINOPHILS ABSOLUTE AUTO 0.22 K/uL (0.00-0.40); EOSINOPHILS PERCENT AUTO 4.6 % (0.0-5.4); IMMATURE GRAN PERCENT AUTO 0.4 % (0.0-0.7); LYMPHOCYTES ABSOLUTE AUTO 1.71 K/uL (0.8-3.3); LYMPHOCYTES PERCENT AUTO 35.4 % (11.4-47.7); MONOCYTES ABSOLUTE AUTO 0.41 K/uL (0.20-0.90); MONOCYTES PERCENT AUTO 8.5 % (3.3-12.6); NEUTROPHILS ABSOLUTE AUTO 2.42 K/uL (1.0-7.6); NEUTROPHILS PERCENT AUTO 50.1 % (40.0-78.1); PLATELET COUNT,PLT 137 K/uL (130-375); RED BLOOD CELL COUNT 3.29 M/uL (3.77-5.24); WHITE BLOOD CELL COUNT,WBC 4.8 K/uL (3.2-11.0)
[2024-11-05 20:23] LABS: IMMATURE GRAN ABSOLUTE AUTO 0.02 K/uL (0.00-0.23)
[2024-11-05 20:39] LABS: INR 2.7
[2024-11-05 20:42] LABS: A/G RATIO 1.2 (1.2-2.2); ALANINE AMINOTRANSFERASE,ALT 36 U/L (12-78); ASPARTATE AMNIOTRANSFERASE,AST 28 U/L (15-37); BILIRUBIN TOTAL 0.4 mg/dL (0.2-1.0); BLOOD UREA NITROGEN,BUN 38 mg/dL (7-18); CARBON DIOXIDE,CO2 30 mmol/L (21-32); CHLORIDE,CL 106 mmol/L (100-108); CREATININE 1.4 mg/dL (0.6-1.0); EST CRCL DRUG DOSING (CG) 29.06 mL/min; ESTIMATED GFR 39 mL/min (>60); GLUCOSE RANDOM 131 mg/dL (74-106); POTASSIUM,K 5.1 mmol/L (3.6-5.2); PROTEIN TOTAL,TP 6.9 g/dL (6.4-8.2); SODIUM,NA 142 mmol/L (140-148)
[2024-11-05] MEDS: Ondansetron 4 MG/2 ML SDV IVPUSH ONE (21:53)
[2024-11-06] MEDS: Bacitracin Oint 1 GM U/D Packet TOP ONE (01:20)
[2024-11-06 01:40] VITALS: BP 105/48; PULSE 64
== END 2024-11-06 01:30 | disposition home or self-care (01) ==
LOC: JP.ED 19:42
DX: S01.01XA Laceration without foreign body of scalp, initial encounter (principal); I10 Essential (primary) hypertension; E78.00 Pure hypercholesterolemia, unspecified; E11.9 Type 2 diabetes mellitus without complications; E66.9 Obesity, unspecified; K21.9 Gastro-esophageal reflux disease without esophagitis; M19.90 Unspecified osteoarthritis, unspecified site; Z79.899 Other long term (current) drug therapy; W01.198A Fall on same level from slipping, tripping and stumbling with subsequent striking against other object, initial encounter; Z68.30 Body mass index [BMI] 30.0-30.9, adult
CPT/HCPCS: 12005; 36415; 70450; 72125; 76377; 80053; 85025; 85610; 96374; 99284; A9270; J2003; J2405